=== PATIENT | male | born 1945 | race Caucasian/White ===

== ENCOUNTER → 2018-08-27 | Outpatient (CLI) | payer OTHER, MEDICARE ==
[~2018-08-27] VITALS: Ht 177.8 cm; Wt 109.8 kg
[~2018-08-27] MED LIST: CILOSTAZOL50 MG PO; COREG6.25 MG PO; COUMADIN 2.5MG2.5 M1 PO; DESOWEN60 GM TOP; DIGOXIN250 MCG PO; GLUCOSAMINE HC500 MG PO; KETOCONAZOLE15 GM TOP; LASIX 80 MG TAB80 MG PO; NEURONTIN600 MG PO; OMEGA-31000 M1 PO; POTASSIUM20 PO; SYNTHROID50 MCG PO; VITAMIN B-1100 M1 PO; VITAMIN D1000 UNI1 PO
--- NOTE | 2018-08-27 08:34 | NUR ---
Diazepam 10mg given by IR nurse.
== END | disposition home or self-care (01) ==
LOC: SPEC 07:04
DX: I70.213 Atherosclerosis of native arteries of extremities with intermittent claudication, bilateral legs (principal); I70.1 Atherosclerosis of renal artery; I10 Essential (primary) hypertension; I25.10 Atherosclerotic heart disease of native coronary artery without angina pectoris; I48.91 Unspecified atrial fibrillation; I42.9 Cardiomyopathy, unspecified; Z85.038 Personal history of other malignant neoplasm of large intestine; Z98.890 Other specified postprocedural states; Z79.01 Long term (current) use of anticoagulants; Z87.891 Personal history of nicotine dependence; Z79.899 Other long term (current) drug therapy

== ENCOUNTER → 2018-08-30 | Outpatient (CLI) | payer OTHER, MEDICARE ==
[~2018-08-30] VITALS: Ht 177.8 cm; Wt 109.8 kg
[~2018-08-30] MED LIST changes: +PLAVIX 75 MG TA75 M1 PO
[2018-08-30 11:58] VITALS: BP 113/42
[2018-08-30 12:08] LABS: HEMATOCRIT 41.8 % (42.0-52.0); HEMOGLOBIN 14.4 gm/dL (14.0-18.0); MCH 36.8 pg (26.0-34.0); MCHC 34.4 g/dL (28.0-37.0); RBC 3.9 mil/uL (4.50-6.00); RDW 14.5 % (10.5-14.5); WBC 4.6 thou/uL (4.0-11.0)
[2018-08-30 12:21] LABS: CREATININE 1.5 mg/dL (0.7-1.3); INR 1.1; POTASSIUM 3.9 mmol/L (3.5-5.1); PROTIME 11.3 Seconds (9.3-11.4)
== END | disposition home or self-care (01) ==
LOC: SPEC 11:16
PROVIDERS: Nuclear Medicine Nuclear Cardiology
DX: I70.213 Atherosclerosis of native arteries of extremities with intermittent claudication, bilateral legs (principal); I48.91 Unspecified atrial fibrillation; I42.9 Cardiomyopathy, unspecified; Z87.891 Personal history of nicotine dependence; Z79.01 Long term (current) use of anticoagulants; Z79.899 Other long term (current) drug therapy; Z98.890 Other specified postprocedural states; Z85.038 Personal history of other malignant neoplasm of large intestine

== ENCOUNTER → 2018-09-19 | Outpatient (CLI) | payer OTHER, MEDICARE | LOC: RAD 14:25 | DX: J84.10 Pulmonary fibrosis, unspecified (principal) ==

== ENCOUNTER 2018-10-30 12:14 | Emergency (ER) | payer OTHER, MEDICARE ==
[~2018-10-30] VITALS: Ht 177.8 cm; Wt 112.5 kg
[2018-10-30 13:38] LABS: ABSOLUTE NEUTROPHILS 3.6 thou/uL (1.4-8.2); BASOPHILS 0.6 % (0.0-2.0); EOSINOPHILS 1.9 % (0.0-3.0); HEMATOCRIT 37.5 % (42.0-52.0); HEMOGLOBIN 12.6 gm/dL (14.0-18.0); MCH 36.1 pg (26.0-34.0); MCHC 33.8 g/dL (28.0-37.0); MCV 107.1 fL (80.0-100.0); MONOCYTES 6.4 % (1.0-8.0); PLATELET COUNT 124 thou/uL (150-400); POLYS 74.1 % (36.0-66.0); RDW 15.5 % (10.5-14.5); WBC 4.8 thou/uL (4.0-11.0)
[2018-10-30 13:46] LABS: CALCIUM 8.9 mg/dL (8.5-10.1); CREATININE 1.4 mg/dL (0.7-1.3); POTASSIUM 3.4 mmol/L (3.5-5.1)
[2018-10-30 13:51] LABS: ALBUMIN 3.2 g/dL (3.4-5.0); TOTAL BILIRUBIN 0.5 mg/dL (<0.1-1.0); TOTAL PROTEIN 7.4 g/dL (6.4-8.2)
[2018-10-30 14:34] LABS: INR 2.5; PROTIME 25.7 Seconds (9.3-11.4)
[2018-10-30 15:19] VITALS: BP 108/83
== END 2018-10-30 15:19 | disposition home or self-care (01) ==
LOC: ER 12:14
PROVIDERS: Nurse Practitioner Family
DX: R60.9 Edema, unspecified (principal); R53.1 Weakness; I48.91 Unspecified atrial fibrillation; Z79.899 Other long term (current) drug therapy

== ENCOUNTER → 2018-11-26 | Outpatient (CLI) | payer OTHER, MEDICARE | LOC: HYPER 11-15 10:22 | DX: I89.0 Lymphedema, not elsewhere classified (principal); M79.89 Other specified soft tissue disorders; I73.9 Peripheral vascular disease, unspecified; I77.9 Disorder of arteries and arterioles, unspecified; I50.9 Heart failure, unspecified; I48.91 Unspecified atrial fibrillation; M48.061 Spinal stenosis, lumbar region without neurogenic claudication; R60.0 Localized edema; J44.9 Chronic obstructive pulmonary disease, unspecified; Z95.0 Presence of cardiac pacemaker; Z79.01 Long term (current) use of anticoagulants; Z85.048 Personal history of other malignant neoplasm of rectum, rectosigmoid junction, and anus; Z87.891 Personal history of nicotine dependence ==

== ENCOUNTER → 2018-12-05 | Outpatient (CLI) | payer OTHER, MEDICARE | LOC: HYPER 06:54 | DX: I89.0 Lymphedema, not elsewhere classified (principal); I73.9 Peripheral vascular disease, unspecified; I77.9 Disorder of arteries and arterioles, unspecified; I50.9 Heart failure, unspecified; I48.91 Unspecified atrial fibrillation; R60.0 Localized edema; J44.9 Chronic obstructive pulmonary disease, unspecified; M79.89 Other specified soft tissue disorders; M48.061 Spinal stenosis, lumbar region without neurogenic claudication; Z87.891 Personal history of nicotine dependence; Z95.0 Presence of cardiac pacemaker; Z85.038 Personal history of other malignant neoplasm of large intestine; Z79.01 Long term (current) use of anticoagulants ==

== ENCOUNTER → 2018-12-26 | Outpatient (CLI) | payer OTHER, MEDICARE | LOC: HYPER 07:04 | DX: I89.0 Lymphedema, not elsewhere classified (principal); M79.89 Other specified soft tissue disorders; I73.9 Peripheral vascular disease, unspecified; I77.9 Disorder of arteries and arterioles, unspecified; I48.91 Unspecified atrial fibrillation; I50.9 Heart failure, unspecified; J44.9 Chronic obstructive pulmonary disease, unspecified; R60.0 Localized edema; M48.061 Spinal stenosis, lumbar region without neurogenic claudication; Z79.01 Long term (current) use of anticoagulants; Z87.891 Personal history of nicotine dependence; Z95.0 Presence of cardiac pacemaker; Z85.038 Personal history of other malignant neoplasm of large intestine ==

== ENCOUNTER → 2019-01-03 | Outpatient (CLI) | payer OTHER, MEDICARE ==
--- NOTE | 2019-01-06 21:30 | SLE ---
[facility] [place] [address] POLYSOMNOGRAPHY STUDY Name: HERSON RAGLAND JR Room #: [facility]#: [id number] Admission: 01/03/19 Attend Phys: Tao Larry MD Discharge: Date of : 45 Report #: [id number] THIS REPORT FOR: //name// CC: Tao Regalado DATE OF SERVICE: 01/03/2019 ATTENDING PHYSICIAN: Dr. Andre Dawson. The patient is 73 years old who weighs 243 pounds with a BMI of 34.9. The patient's [place] score was 10. The patient underwent split night study performed at [facility]. During the night study, the patient spent 456 minutes in bed and slept for 392 minutes with a sleep efficiency of 86%. Sleep latency was 18.3 minutes with a REM latency of 123 minutes. Sleep architecture showed normal stage 1 sleep, increased stage 2 sleep, absent slow wave, and slightly reduced REM sleep. During the initial diagnostic portion of the study, the patient slept for 132 minutes. During that time, there was 1 obstructive apnea, no mixed or central apneas, and 71 hypopneas. The patient's apnea-hypopnea index was 32.6 per hour, REM index of 20 per hour, and a supine index of 61 per hour. EKG monitoring revealed irregular rhythm consistent with atrial fibrillation. Frequent PVCs were observed. Occasional bigeminy seen. The patient's average heart rate was 74 beats per minute with a maximum of 102 beats per minute. PLMS were seen at an index of 5 per hour and 1.8 per hour caused EEG arousals. Nocturnal oximetry study during the diagnostic portion revealed an average oxygen saturation of 80% with a lowest of 61%. Fifty minutes were spent in oxygen saturation of less than 89% and 77 minutes with saturation of less than 79%. The patient met the criteria for CPAP initiation. It was started at 7 cm water and titrated up to 13 cm water. At the final pressure, the patient slept for 62 minutes. The patient had 8 minutes of lateral REM sleep. The patient's AHI was reduced to 0 per hour. Oxygen saturations remained in the high 80s with a lowest of 83%. IMPRESSION: 1. Severe sleep apnea-hypopnea syndrome at an AHI of 32.6 per hour with a supine AHI of 61 per hour. 2. Nocturnal hypoxia secondary to obstructive sleep apnea, improved with CPAP, [facility] [address] [place] [address] POLYSOMNOGRAPHY STUDY Name: ELLYNHERSON Martin Room #: [facility]#: [id number] Admission: 01/03/19 Attend Phys: Tao Larry MD Discharge: Date of : 45 Report #: [id number] but not completely resolved. 3. No clinically significant periodic limb movements. 4. Abnormal EKG with A-fib with controlled rate. RECOMMENDATIONS: 1. CPAP at 13 cm water completely eliminated the patient's sleep apnea and should be used on a nightly basis. 2. The patient should have a followup nocturnal oximetry as an outpatient at this final pressure to assess the need for any supplemental oxygen. 3. Weight loss is strongly advised. 4. Avoid [employer] depressants. 5. Cautioned regarding driving until symptoms of sleep apnea resolve with the above recommendations. 6. The patient had abnormal EKG consistent with atrial fibrillation. The patient should have a followup if clinically indicated with Cardiology. <ELECTRONICALLY SIGNED> By: Tao Larry MD 01/06/19 [id number] Tao Larry MD /nt
== END ==
LOC: SLEEPLAB 15:38
DX: G47.33 Obstructive sleep apnea (adult) (pediatric) (principal); G47.34 Idiopathic sleep related nonobstructive alveolar hypoventilation; G47.30 Sleep apnea, unspecified

== ENCOUNTER → 2020-01-08 | Outpatient (CLI) | payer OTHER, MEDICARE | LOC: CAT 14:04 | PROVIDERS: ATTEND Pediatrics | DX: Z12.2 Encounter for screening for malignant neoplasm of respiratory organs (principal); J84.10 Pulmonary fibrosis, unspecified; I25.10 Atherosclerotic heart disease of native coronary artery without angina pectoris; Z87.891 Personal history of nicotine dependence ==